=== PATIENT | female | born 1965 | race Two or more races ===

== ENCOUNTER 2018-04-28 08:51 | Outpatient (CLI) | payer OTHER | END 2018-04-28 15:00 | disposition home or self-care (01) | LOC: TOM 08:51 | DX: M54.5 Low back pain (principal); Z01.810 Encounter for preprocedural cardiovascular examination; E78.9 Disorder of lipoprotein metabolism, unspecified; K40.90 Unilateral inguinal hernia, without obstruction or gangrene, not specified as recurrent ==

== ENCOUNTER 2018-12-31 14:09 | Outpatient (CLI) | payer OTHER | END 2018-12-31 14:23 | disposition home or self-care (01) | LOC: NUCLEAR 14:09 | DX: M81.0 Age-related osteoporosis without current pathological fracture (principal) ==

== ENCOUNTER → 2020-10-13 13:54 | Outpatient (CLI) | payer OTHER | END | disposition home or self-care (01) | LOC: NUCLEAR 13:54 | PROVIDERS: ATTEND Obstetrics & Gynecology Maternal & Fetal Medicine | DX: M81.0 Age-related osteoporosis without current pathological fracture (principal) ==

== ENCOUNTER 2020-10-19 13:41 | Outpatient (CLI) | payer OTHER | END 2020-10-19 13:52 | disposition home or self-care (01) | LOC: SONOGRAMA 13:41 | PROVIDERS: ATTEND Obstetrics & Gynecology Maternal & Fetal Medicine | DX: R10.2 Pelvic and perineal pain (principal); N95.0 Postmenopausal bleeding; R07.89 Other chest pain ==

== ENCOUNTER 2023-03-06 11:22 | Outpatient (CLI) | payer OTHER | END 2023-03-06 11:38 | disposition home or self-care (01) | LOC: SONOGRAMA 11:22 | PROVIDERS: ATTEND Internal Medicine Endocrinology, Diabetes & Metabolism | DX: E04.1 Nontoxic single thyroid nodule (principal) ==

== ENCOUNTER 2023-03-06 13:02 | Outpatient (CLI) | payer OTHER | END 2023-03-06 13:04 | disposition home or self-care (01) | LOC: NUCLEAR 13:02 | PROVIDERS: ATTEND Internal Medicine Endocrinology, Diabetes & Metabolism | DX: M81.0 Age-related osteoporosis without current pathological fracture (principal) ==

== ENCOUNTER 2024-11-25 11:24 | Outpatient (CLI) | payer OTHER | END 2024-11-25 11:31 | disposition home or self-care (01) | LOC: RAD 11:24 | PROVIDERS: ATTEND Internal Medicine Pulmonary Disease | DX: R05.3 Chronic cough (principal) ==